=== PATIENT | male | born 1955 | race Hispanic/Latino ===

== ENCOUNTER 2017-10-13 08:11 | Emergency (ER) | payer SELFPAY ==
[2017-10-13] MEDS ORDERED: Fentanyl 100 MCG/2 ML VIAL ONE ×2 (08:29→09:04)
[2017-10-13] MEDS ORDERED: Ondansetron HCl/PF 4 MG/2 ML Vial ONE (08:30)
[2017-10-13 08:38] LABS: #Basophils 0.1 thou/uL (0.0-0.2); #Eosinphils 0.3 thou/uL (0.0-0.7); #Lymphocytes 1.7 thou/uL (1.20-3.40); #Neutrophils 11.9 thou/uL (1.40-6.50); %Basophils 0.7 % (0.0-1.0); %Eosinophils 2.2 % (0.0-10.0); %Lymphocytes 11.2 % (21.0-51.0); %Monocytes 6.6 % (0.0-10.0); %Neutrophils 79.4 % (42.0-75.0); Hemoglobin 16.8 g/dL (14.0-18.0); Mean Corpuscular HGB CONC 38.2 g/dL (32.0-36.0); Mean Corpuscular Hemoglobin 30.8 pg (27.0-31.0); Mean Corpuscular Volume 80.4 fL (78.0-98.0); Mean Platelet Volume 8.1 fL (7.4-10.4); Platelet Count 122 thou/uL (130-400); RBC Distribution Width 11.1 % (11.5-14.5); Red Blood Cell (RBC) Count 5.46 mill/uL (4.70-6.10)
[2017-10-13 08:50] LABS: ALT (SGPT) 32 U/L (8-55); AST (SGOT) 28 U/L (5-34); Albumin 4.6 g/dL (3.4-4.8); Alkaline Phosphatase 92 U/L (40-150); Anion Gap 15 mmol/L (10-20); BUN (Urea Nitrogen) 10 mg/dL (8.4-25.7); Bilirubin, Total 1.4 mg/dL (0.2-1.2); Calc. Creatinine Clearance 0 mL/min (70-130); Calcium 9.7 mg/dL (7.8-10.44); Carbon Dioxide 22 mmol/L (23-31); Chloride 106 mmol/L (98-107); Estimated GFR-MDRD 67; Glucose 147 mg/dL (80-115); Protein, Total 7.6 g/dL (5.8-8.1); Sodium 139 mmol/L (136-145)
[2017-10-13 08:57] LABS: CKMB 0.6 ng/mL (0-6.6); Troponin I Less than 0.010 ng/mL (< 0.028)
[2017-10-13] MEDS ORDERED: Iopamidol 370 76% 100 ML VIAL ONE (09:00)
[2017-10-13 09:15] LABS: Lipase 7910 U/L (8-78)
[2017-10-13] MEDS ORDERED: Pantoprazole 40 MG VIAL ONE (10:01)
[2017-10-13 10:41] LABS: Bilirubin Negative (Negative); Blood, Urine Negative (Negative); Clarity Clear (Clear); Glucose, Urine (Dipstick) Negative (Negative); Leukocyte Negative (Negative); Nitrite Negative (Negative); Protein, Urine (Dipstick) Negative (Neg-Trace); pH, Urine 6.5 (5.0-9.0)
--- NOTE | 2017-10-13 18:37 | CT ---
CT ABDOMEN AND PELVIS WITH CONTRAST: 10/13/2017 TECHNIQUE: A spiral CT of the abdomen and pelvis was performed for evaluation of severe left upper quadrant pain . Axial slices were acquired and then coronal and sagittal reconstructions were done. FINDINGS: The lung bases are clear, except for some minor dependent atelectasis. There may be a trace of pleur al fluid or thickening in the right posterior hemithorax. A major finding on the study is fluid surrounding the pancreas, suggesting a diagnosis of acute pancr eatitis. There is no sign of pseudo cyst or mass. I see no stones in the gallbladder or in the comm on bile duct, as it enters the pancreas. The liver, spleen, adrenal glands, kidneys, and abdominal aorta appear normal. No pathology is seen in an of these organs. There is no evidence of bowel obstruction. No inflammatory changes are seen around bowel, except for some mild thickening of the duodenal C-loop, to be expected due to the adjacent pancreatic inflammat ion. No free air is seen. CT pelvis showed no pelvic masses, fluid collections, or inflammatory changes here. IMPRESSION: Findings consistent with acute pancreatitis. POS: HOME
== END 2017-10-13 10:44 | disposition short-term general hospital (02) ==
LOC: BURERS 08:11
DX: K85.90 Acute pancreatitis without necrosis or infection, unspecified (principal); F17.210 Nicotine dependence, cigarettes, uncomplicated
CPT/HCPCS: 74177; 80053; 81003; 82553; 83605; 83690; 84484; 85025; 93005; 96361; 96374; 96375; A4216; C9113; J2405; J3010